=== PATIENT | male | born 1955 | race Caucasian/White ===

== ENCOUNTER 2019-01-26 06:11 | Day surgery (SDC) | payer MEDICARE, BC ==
[~2019-01-26] VITALS: Ht 167.6 cm; Wt 63.6 kg
--- NOTE | ~2019-01-26 | OP ---
PATIENT NAME: ANGIE GASTELUM MEDICAL RECORD: [id number] :55 LOCATION:[facility] ADMISSION DATE: SURGEON: BRISA HOFFMAN DO DATE OF OPERATION: 01/26/2019 PROCEDURE: EGD with biopsies. INDICATIONS FOR PROCEDURE: Dysphagia and hoarseness. SCOPE: Olympus video gastroscope. MEDICATIONS: Propofol 60 mg IV and Versed 2 mg IV per anesthesia. COMPLICATIONS: None. FINDINGS: Informed consent was given. The patient was made comfortable with the above medication. After reaching an adequate level of sedation by slow IV push, the patient was placed in the left side. The endoscope was advanced under direct visualization through the mouth to the second portion of the duodenum with ease. The entire esophagus appeared normal without strictures or other abnormalities. At the GE junction, there was evidence of LA class A reflux-induced esophagitis. The endoscope was advanced beyond the GE junction into the stomach and retroflexed to view the cardia, which appeared normal. Throughout the entire stomach, there were patchy areas of erythema and granularity consistent with gastritis. Cold forcep biopsies were taken from the antrum to submit for histopathology and to rule out the presence of H. pylori. The endoscope was advanced beyond the pylorus into the duodenum which appeared normal down to the second portion. The endoscope was then withdrawn back into the esophagus and cold forceps biopsies were taken from the midesophagus to rule out the presence of eosinophils. The endoscope was withdrawn from the patient. The patient tolerated the procedure well and there were no complications. IMPRESSION: 1. LA class A reflux-induced esophagitis. 2. Gastritis. PLAN AND RECOMMENDATIONS: 1. Discharge home when recovery parameters are met. 2. Follow up biopsy specimen results. 3. GERD diet and reflux precautions. 4. Continue current medications, which include Dexilant 60 mg daily. 5. We will discuss a modified barium swallow with the patient and proceed with this test if he is agreeable as his symptoms sound more like oropharyngeal dysphagia than esophageal. TRANSINT:[id number] Voice Confirmation ID: [id number] DOCUMENT ID: [id number] OPERATIVE REPORT [id number] ANGIE GASTELUMBRISA FOSTER DO CC: [id number] DICTATION DATE: 01/26/1918 GRAIN DRIER: 01/26/19 0949 [facility] 01/26/19 [address] [place] [address]
[2019-01-26 06:35] LABS: HEMATOCRIT 46.2 % (42.0-54.0); HEMOGLOBIN 16.4 g/dL (13.5-17.5); MCH 33.1 pg (26.0-34.0); MCHC 35.5 g/dL (31.0-37.0); MCV 93.1 fL (80.0-100.0); MEAN PLATELET VOLUME 9.3 fL (7.4-10.4); RBC 4.96 10x6/uL (4.20-6.10); RDW 12.2 % (11.5-14.5); WBC 9.3 10x3/uL (4.8-10.8)
[2019-01-26 06:48] LABS: INR 1.14 (0.85-1.17); PROTIME 14.1 SECONDS (11.6-15.0)
[2019-01-26] MEDS ORDERED: FLUTICASONE PRO16 GM NASAL (07:02)
[2019-01-26] MEDS ORDERED: COLACE100 MG PO (07:03)
[2019-01-26] MEDS ORDERED: DEXILANT30 MG PO (07:03)
[2019-01-26] MEDS ORDERED: DILAUDID4 MG PO (07:03)
[2019-01-26] MEDS ORDERED: EXALGO12 MG PO (07:04)
[2019-01-26] MEDS ORDERED: MOVANTIK25 MG PO (07:04)
[2019-01-26] MEDS ORDERED: PREDNISONE5 MG PO (07:05)
[2019-01-26] MEDS ORDERED: PERCOCET 10-321 EAC1 PO (07:09)
[2019-01-26] MEDS ORDERED: NIFEDIPINE TAB 30M (07:09)
[2019-01-26] MEDS ORDERED: COUMADIN5 MG PO (07:10)
[2019-01-26] MEDS ORDERED: COUMADIN7.5 MG PO (07:11)
[2019-01-26] MEDS ORDERED: PLAQUENIL (07:12)
[2019-01-26] MEDS ORDERED: MIRALAX17 GM PO (07:13)
[2019-01-26] MEDS ORDERED: LIDODERM 5 %1 PATCH TRANSDERM (07:14)
[2019-01-26] MEDS ORDERED: TEMAZEPAM30 MG PO (07:14)
[2019-01-26] MEDS ORDERED: TESTOSTERONE (07:15)
[2019-01-26] MEDS ORDERED: AZELASTINE137 MCG/0. NASAL (07:16)
[2019-01-26] MEDS ORDERED: ALBUTEROL SULF8.5 GM INH (07:16)
[2019-01-26] MEDS ORDERED: SYMBICORT 80-10.2 GM INH (07:17)
[2019-01-26] MEDS ORDERED: SPIRIVIA (07:17)
[2019-01-26] MEDS ORDERED: ZYRTEC10 MG PO (07:19)
[2019-01-26 07:38] VITALS: BP 125/79; Ht 167.6 cm; Wt 63.6 kg
== END 2019-01-26 09:22 | disposition home or self-care (01) ==
LOC: D.OPS 06:11
PROVIDERS: Anesthesiology; ATTEND Internal Medicine Gastroenterology
DX: K21.0 Gastro-esophageal reflux disease with esophagitis (principal); K29.70 Gastritis, unspecified, without bleeding; Z01.812 Encounter for preprocedural laboratory examination

== ENCOUNTER → 2019-02-03 12:46 | Outpatient (CLI) | payer MEDICARE, BC ==
[2019-01-26 07:38] VITALS: BMI 22.6
[~2019-02-03 12:46] MED LIST: ALBUTEROL SULF8.5 GM INH; AZELASTINE137 MCG/0. NASAL; COLACE100 MG PO; COUMADIN5 MG PO; COUMADIN7.5 MG PO; DEXILANT30 MG PO; DILAUDID4 MG PO; EXALGO12 MG PO; FLUTICASONE PRO16 GM NASAL; LIDODERM 5 %1 PATCH TRANSDERM; MIRALAX17 GM PO; MOVANTIK25 MG PO; NIFEDIPINE TAB 30M; PERCOCET 10-321 EAC1 PO; PLAQUENIL; PREDNISONE5 MG PO; SPIRIVIA; SYMBICORT 80-10.2 GM INH; TEMAZEPAM30 MG PO; TESTOSTERONE; ZYRTEC10 MG PO
== END | disposition home or self-care (01) ==
LOC: D.RAD 12:46
PROVIDERS: ATTEND Internal Medicine Gastroenterology
DX: R13.12 Dysphagia, oropharyngeal phase (principal)

== ENCOUNTER 2019-02-23 08:42 | Day surgery (SDC) | payer MEDICARE, BC ==
[~2019-02-23] VITALS: Ht 167.6 cm; Wt 63.6 kg
[2019-02-23 09:04] LABS: HEMOGLOBIN 16.6 g/dL (13.5-17.5); LYMPHOCYTES 12.5 % (15-50); MCH 32.1 pg (26.0-34.0); MCHC 35.3 g/dL (31.0-37.0); MCV 90.9 fL (80.0-100.0); MEAN PLATELET VOLUME 9.3 fL (7.4-10.4); NEUTROPHILS 79.7 % (40-80); RBC 5.17 10x6/uL (4.20-6.10); RDW 12.3 % (11.5-14.5); WBC 8.5 10x3/uL (4.8-10.8)
[2019-02-23 09:06] LABS: PLATELET COUNT 219 10x3/uL (130-400)
[2019-02-23 09:13] LABS: CALC OSMOLALITY 276 mosm/kg (275-300); CALCIUM 8.6 mg/dL (8.5-10.1); CARBON DIOXIDE 32.6 mmol/L (21.0-32.0); CHLORIDE - SERUM 104 mmol/L (98-107); CREATININE - SERUM 0.8 mg/dL (0.6-1.3); GLUCOSE 91 mg/dL (74-106); POTASSIUM - SERUM 3.4 mmol/L (3.5-5.1); SODIUM 140 mmol/L (136-145); UREA NITROGEN 7 mg/dL (7-18); eGFR NON AFRICAN AMERICAN > 90 mL/min (90-120)
[2019-02-23 09:54] VITALS: BP 133/76; Ht 167.6 cm; Wt 63.6 kg
--- NOTE | 2019-02-24 17:25 | OP ---
PATIENT NAME: ANGIE GASTELUM MEDICAL RECORD: [id number] :55 LOCATION:[facility] ADMISSION DATE: SURGEON: BRISA HOFFMAN DO DATE OF OPERATION: 02/23/2019 PROCEDURE: Colonoscopy with polypectomy. INDICATIONS FOR PROCEDURE: Hematochezia, history of colon polyps, abnormal weight loss. SCOPE: Olympus video pediatric colonoscope. MEDICATIONS: Propofol 400 mg IV per anesthesia. WITHDRAWAL TIME: 21 minutes. ESTIMATED BLOOD LOSS: Minimal. COMPLICATIONS: None. FINDINGS AND DESCRIPTION OF PROCEDURE: Informed consent was given. The patient was made comfortable with the above medication. After reaching an adequate level of sedation by slow IV push, the patient was placed on his left side. A digital rectal examination was performed and it was normal. The endoscope was then advanced under direct visualization through the rectum to the cecum, confirmed by the presence of the appendiceal orifice and ileocecal valve. The endoscope was slowly withdrawn and the mucosa was carefully examined. The prep quality was good. There were 2 polyps visualized on today's examination. They were both benign-appearing and sessile. They ranged in size from 4-5 mm in diameter. One was located in the ascending colon and the other was in the descending colon. They were both removed using a hot snare in one piece and completely retrieved. There were no diverticula visualized on today's examination. Retroflexion was performed in the rectum with visualization of grade I internal hemorrhoids without active bleeding. The endoscope was withdrawn from the patient. The patient tolerated the procedure well and there were no complications. IMPRESSION: 1. Two polyps as described above, removed using hot snare. 2. Grade I internal hemorrhoids without bleeding. PLAN AND RECOMMENDATIONS: 1. Discharge home when recovery parameters are met. 2. Follow up biopsy specimen results. 3. High fiber diet. 4. Continue current medications. 5. Recall colonoscopy in 5 years. TRANSINT:[id number] Voice Confirmation ID: [id number] DOCUMENT ID: [id number] OPERATIVE REPORT [id number] ANGIE GASTELUM BRISA HOFFMAN DO at 1728 CC: [id number] DICTATION DATE: 02/23/19 1048 [facility]OP ROLLER: 02/23/19 1137 [facility] 02/23/19 [place] [address]
== END 2019-02-23 11:36 | disposition home or self-care (01) ==
LOC: D.OPS 08:42
PROVIDERS: Anesthesiology; ATTEND Internal Medicine Gastroenterology
DX: D12.0 Benign neoplasm of cecum (principal); D12.4 Benign neoplasm of descending colon; Z86.010 Personal history of colon polyps; K64.0 First degree hemorrhoids; Z01.812 Encounter for preprocedural laboratory examination